=== PATIENT | male | born 1995 | race African-American/Black ===

== ENCOUNTER 2024-12-14 21:09 | Emergency (ER) | payer OTHER ==
[~2024-12-14] VITALS: Ht 172.7 cm; Wt 88.6 kg
[2024-12-14 23:01] VITALS: BP 124/81; PULSE 74; RESP 18; TEMP 98.4; O2SAT 99
[2024-12-14] MEDS ORDERED: TRIA15CR49 TP (23:35)
== END 2024-12-14 23:43 | disposition home or self-care (01) ==
LOC: EMS 21:10
DX: R21 Rash and other nonspecific skin eruption (principal); J45.909 Unspecified asthma, uncomplicated
CPT/HCPCS: 99283; Z7502